=== PATIENT | female | born 1945 | race Caucasian/White ===

== ENCOUNTER → 2017-12-04 | Outpatient (CLI) | payer MEDICARE, BC ==
--- NOTE | 2017-12-05 11:04 | Diagnostic Imaging Report ---
History: Migraines for years Comparison studies: None Technique: Sagittal T2; axial DWI, FLAIR, MPGR, T1, Coronal FLAIR. Intravenous contrast: None Findings: Scalp: Normal in signal . No masses . Bone marrow: Normal in signal intensity. Extra-axial: No masses, no fluid collections. Brain sulci: Appropriate for age. Ventricles: Normal in size . No hydrocephalus . Parenchyma: Few small T2/FLAIR hyperintensities of the periventricular and deep white matter No masses, hemorrhage, acute or chronic vascular insults. Suprasellar region: No abnormalities. Craniocervical junction: No abnormalities. Patent foramen magnum. No Chiari one malformation. Vessels: Normal flow-voids in the arteries and sinuses. IMPRESSION: 1. No acute intracranial abnormalities. 2. Mild chronic microvascular ischemic changes of the white matter and age-related volume loss. Signed by: DR Víctor Obrien M.D. on 12/05/2017 11:00 AM
== END ==
LOC: MRI 07:25
PROVIDERS: ATTEND Family Medicine
DX: G43.909 Migraine, unspecified, not intractable, without status migrainosus (principal); H93.19 Tinnitus, unspecified ear
CPT/HCPCS: 70551

== ENCOUNTER → 2018-12-01 | Day surgery (SDC) | payer MEDICARE, BC ==
[~2018-12-01] MED LIST: MAGNESIUM OXID400 MG PO; MIDAZOLAM HCL 2 MG/2 ML VIAL ONE; MULTI-VITAMIN1 EACH PO; OR PHACO EYE KIT ONE; PREOP PHACO EYE KIT ONE; VITAMIN D32000 UNIT PO
--- OUTSIDE RECORDS SUMMARY | 2018-12-01 10:56 | XMS REPORT ---
[facility] Address Unknown Phone Unavailable Care Team Providers Care Incident Analyst Name Role Phone ANITA CARMONA Unavailable Unavailable Problems This patient has no known problems. Allergies, Adverse Reactions, Alerts This patient has no known allergies or adverse reactions. Medications This patient has no known medications. Results Test Description Test Time Test Comments Text Results Atomic Results Result Comments MRI BRAIN WO [place] [address] Patient Name: SHAGGY MCCARTY MR #: [id number] : 1945 Age/Sex: 72/F Req #: [id number] Adm Physician: Ordered by: ANITA CARMONA MD Report #: [id number] Location: MRI Room/Bed: Procedure: [id number] MRI/MRI BRAIN WO Exam Date: Exam Time: REPORT STATUS: Signed History: Migraines for years Comparison studies: None Technique: Sagittal T2; axial DWI, FLAIR, MPGR, T1, Coronal FLAIR. Intravenous contrast: None Findings: Scalp: Normal in signal . No masses . Bone marrow: Normal in signal intensity. Extra-axial: No masses, no fluid collections. Brain sulci: Appropriate for age. Ventricles: Normal in size . No hydrocephalus . Parenchyma: Few small T2/FLAIR hyperintensities of the periventricular and deep white matter No masses, hemorrhage, acute or chronic vascular insults. Suprasellar region: No abnormalities. Craniocervical junction: No abnormalities. Patent foramen magnum. No Chiari one malformation. Vessels: Normal flow-voids in the arteries and sinuses. IMPRESSION: 1. No acute intracranial abnormalities. 2. Mild chronic microvascular ischemic changes of the white matter and age-related volume loss. Signed by: DR Víctor Obrien M.D. on 12/05/2017 11:00 AM Dictated By: VÍCTOR OBRIEN MD 1100 Transcribed By: MATHEW on 12/05/17 1100 COPY TO: ANITA CARMONA MD
[2018-12-01 13:45] VITALS: BP 145/89
== END | disposition home or self-care (01) ==
LOC: OR 10:54
PROVIDERS: ATTEND Ophthalmology
DX: H25.12 Age-related nuclear cataract, left eye (principal); I10 Essential (primary) hypertension; Z88.1 Allergy status to other antibiotic agents; Z88.0 Allergy status to penicillin; I45.10 Unspecified right bundle-branch block
CPT/HCPCS: 66984; J2250; V2632

== ENCOUNTER → 2018-12-15 | Day surgery (SDC) | payer MEDICARE, BC ==
[~2018-12-15] MED LIST changes: +FENTANYL CITRATE/PF 100MCG/2 ML INJ ONE
[2018-12-15 14:15] VITALS: BP 161/85
== END | disposition home or self-care (01) ==
LOC: OR 11:45
PROVIDERS: ATTEND Ophthalmology
DX: H25.11 Age-related nuclear cataract, right eye (principal); I34.1 Nonrheumatic mitral (valve) prolapse; Z88.1 Allergy status to other antibiotic agents; Z88.0 Allergy status to penicillin
CPT/HCPCS: 66984; J2250; V2632